=== PATIENT | female | born 1995 | race African-American/Black ===

== ENCOUNTER 2018-03-07 00:40 | Emergency (ER) | payer OTHER ==
[2018-03-07 00:51] VITALS: BP 132/66
--- NOTE | 2018-03-07 01:16 | ED Physician Documentation ---
History of Present Illness - Stated complaint Stated Complaint: TEST - Chief complaint Chief Complaint: General - History obtained from History obtained from: Patient - History of Present Illness Timing: Other (tonight) Pain level max: 0 Pain level now: 0 - Additonal information Additional information: had nexplanon (LUE) placed November 2017. she says she has taken several home tests since then, and tonight had (+) result for first time. She is asymptomatic, requests blood test for ; she is chiefly concerned that she is with nexplanon in place. Review of Systems GI: denies: Abdominal Pain, Nausea, Vomiting PD PAST MEDICAL HISTORY - Past Medical History Past Medical History: No - Past Surgical History Past Surgical History: No - Present Medications Home Medications: Ambulatory Orders Medication Instructions Recorded Confirmed No Known Home Medications [No 03/07/18 03/07/18 Known Home Medications] - Allergies Allergies/Adverse Reactions: Allergies Allergy/AdvReac Type Severity Reaction Status Date / Time No Known Drug Allergies Allergy Verified 03/07/18 00:50 - Social History Does the pt smoke?: No Smoking Status: Never smoker Does the pt drink ETOH?: No Does the pt have substance abuse?: No PD ED PE NORMAL - Vitals Vital signs reviewed: Yes - General General: Alert and oriented X 3, No acute distress, Well developed/nourished - Abdomen Abdomen: Soft, Non tender Results - Vitals Vitals: Vital Signs - 24 hr 03/07/18 00:49 Temperature 36.8 C Heart Rate 71 Respiratory 16 Rate Blood Pressure 132/66 H O2 Saturation 100 Oxygen O2 Source Room air - Labs Labs: Laboratory Tests 03/07/18 01:34 HCG, Quant < 0.60 PD MEDICAL DECISION MAKING - ED course Complexity details: reviewed results, re-evaluated patient, considered differential, d/w patient ED course: serum quantitative HCG is negative (<0.6). discharged after result reviewed Departure - Departure Disposition: 01 Home, Self Care Clinical Impression: Negative test Condition: Good Comments: Your serum (blood) test is negative tonight. This means your home test was incorrect ("false positive"), which is unusual but can occasionally happen. Discharge Date/Time: 03/07/18 02:29
== END 2018-03-07 02:29 | disposition home or self-care (01) ==
LOC: ED 00:40
DX: Z32.02 Encounter for pregnancy test, result negative (principal)
CPT/HCPCS: 36415; 84702; 99281; 99282

== ENCOUNTER 2018-04-07 18:03 | Emergency (ER) | payer OTHER ==
[2018-04-07 18:20] VITALS: BP 117/62
--- NOTE | 2018-04-07 20:16 | ED Physician Documentation ---
History of Present Illness - Stated complaint Stated Complaint: TAILBONE PX - Chief complaint Chief Complaint: Back Pain - History obtained from History obtained from: Patient - History of Present Illness Timing: Today - Additonal information Additional information: Patient is a 22 year old female with no significant past medical history who is presenting to the emergency department for tailbone pain. patient states that she was moving all day today by herself and now has low back pain. patient denies any trauma or rash. Review of Systems Ten Systems: 10 systems reviewed and negative PD PAST MEDICAL HISTORY - Past Medical History Past Medical History: No - Past Surgical History Past Surgical History: No - Present Medications Home Medications: Ambulatory Orders Medication Instructions Recorded Confirmed Lidocaine Patch 5% [Lidoderm Patch] 1 each TOP DAILY #14 patch 04/07/18 - Allergies Allergies/Adverse Reactions: Allergies Allergy/AdvReac Type Severity Reaction Status Date / Time No Known Drug Allergies Allergy Verified 04/07/18 18:20 - Social History Does the pt smoke?: No Smoking Status: Never smoker Does the pt drink ETOH?: No Does the pt have substance abuse?: No - POLST Patient has POLST: No PD ED PE NORMAL - Vitals Vital signs reviewed: Yes - General General: Alert and oriented X 3, No acute distress - HEENT HEENT: Atraumatic - Cardiac Cardiac: RRR - Respiratory Respiratory: No respiratory distress - Abdomen Abdomen: Non distended - Derm Derm: Normal color, No rash - Extremities Extremities: No deformity - Neuro Neuro: Alert and oriented X 3, No motor deficit PD ED PE EXPANDED - Back Back: Soft tissue tenderness (mild tendnerness to palpation over coccyx, no rash , no abscess, no gross deformity) Results - Vitals Vitals: Vital Signs - 24 hr 04/07/18 18:18 Temperature 36.9 C Heart Rate 69 Respiratory 16 Rate Blood Pressure 117/62 O2 Saturation 97 Oxygen O2 Source Room air PD MEDICAL DECISION MAKING - ED course Complexity details: reviewed old records, reviewed results, re-evaluated patient , considered differential, d/w patient ED course: Patient was seen and examined at bedside. patient was well appearing. there was no trauma and no gross deformity so no imaging was indicated. Patient is actively breast feeding and was treated with tylenol and lidoderm patch. patient required no further work up at this time and was stable for discharge with outpatient follow up. - Sepsis Event Vital Signs: Vital Signs - 24 hr 04/07/18 18:18 Temperature 36.9 C Heart Rate 69 Respiratory 16 Rate Blood Pressure 117/62 O2 Saturation 97 Oxygen O2 Source Room air Departure - Departure Disposition: 01 Home, Self Care Clinical Impression: Back pain Condition: Good Instructions: Low Back Pain Self Care Follow-Up: Marquis Ballesteros MD [Primary Care Provider] - Prescriptions: Lidocaine Patch 5% [Lidoderm Patch] 1 each TOP DAILY #14 patch Comments: You should alternate between ice and heat for your low back pain. You can also take tylenol 650mg or lidoderm topical patches. you can follow up with your doctor if symptoms persist. you can use the donut seat if necessary for pain. You can return to the emergency department at any time for new, worsening or uncontrollable symptoms. Discharge Date/Time: 04/07/18 20:23
[2018-04-07] MEDS: ACETAMINOPHEN 325 MG TABLET PO STA (20:23)
[2018-04-07] MEDS: LIDOCAINE PATCH 5% TOP STA (20:23)
== END 2018-04-07 20:23 | disposition home or self-care (01) ==
LOC: ED 18:03
DX: M54.5 Low back pain (principal)
CPT/HCPCS: 99283

== ENCOUNTER 2018-07-06 11:26 | Emergency (ER) | payer OTHER ==
[2018-07-06 11:44] VITALS: BP 104/63
--- NOTE | 2018-07-06 13:58 | ED Physician Documentation ---
PD HPI SKIN - Stated complaint Stated Complaint: BUMP UNDER ARM - Chief complaint Chief Complaint: Wound - History obtained from History obtained from: Patient - History of Present Illness Timing - onset: How many weeks ago (1) Timing - duration: Weeks (1) Timing - details: Gradual onset Pain level max: 4 Pain level now: 3 Location: Other (L axilla) Quality / character: Painful, Swelling Improved by: Other (nothing) Worsened by (comment): COMMENT (palpation) Associated symptoms: No: Fever, Myalgias Similar symptoms before: Diagnosis (abscess) Recently seen: Not recently seen Review of Systems Constitutional: denies: Fever, Chills Respiratory: denies: Cough GI: denies: Nausea, Vomiting, Diarrhea : denies: Now EGA Skin: denies: Rash Musculoskeletal: denies: Neck pain, Back pain Neurologic: denies: Headache PD PAST MEDICAL HISTORY - Past Medical History Past Medical History: No Cardiovascular: None Respiratory: None Neuro: None Endocrine/Autoimmune: None GI: None CERTIFIED REGISTERED DENTAL ASSISTANT: None : None HEENT: None Musculoskeletal: None Derm: None - Past Surgical History Past Surgical History: No - Present Medications Home Medications: Ambulatory Orders Medication Instructions Recorded Confirmed Ibuprofen [Motrin] 800 mg PO Q8H PRN #30 tablet 07/06/18 Sulfamethox/Trimeth 800/160 1 each PO BID #14 tablet 07/06/18 [Bactrim Ds 800/160] - Allergies Allergies/Adverse Reactions: Allergies Allergy/AdvReac Type Severity Reaction Status Date / Time No Known Drug Allergies Allergy Verified 07/06/18 11:44 - Social History Does the pt smoke?: No Smoking Status: Never smoker Does the pt drink ETOH?: No Does the pt have substance abuse?: No - Immunizations Immunizations are current?: Yes - POLST Patient has POLST: No PD ED PE NORMAL - Vitals Vital signs reviewed: Yes - General General: Alert and oriented X 3, No acute distress - Derm Derm: Warm and dry - Extremities Extremities: Other (L axilla - 1cm, indurated area with mild cellulitis. no fluctuance.) - Neuro Neuro: Alert and oriented X 3 - Psych Psych: Normal mood, Normal affect Results - Vitals Vitals: Vital Signs - 24 hr 07/06/18 11:42 Temperature 36.7 C Heart Rate 82 Respiratory 16 Rate Blood Pressure 104/63 O2 Saturation 96 Oxygen O2 Source Room air PD MEDICAL DECISION MAKING - ED course Complexity details: considered differential, d/w patient ED course: Patient is a 22-year-old female who presents to the emergency department with a early abscess to the left axilla. Ultrasound was applied and there is no drainable fluid at this time. There is no fluctuance on clinical exam. Will place on antibiotics and see how she progresses over the next few days. She is well-appearing, nontoxic. Afebrile. Denies any possibility of . She is not breast-feeding. Patient counseled regarding signs and symptoms for which I believe and urgent re-evaluation would be necessary. Patient with good understanding of and agreement to plan and is comfortable going home at this time This document was made in part using voice recognition software. While efforts are made to proofread this document, sound alike and grammatical errors may oc cur. - Sepsis Event Vital Signs: Vital Signs - 24 hr 07/06/18 11:42 Temperature 36.7 C Heart Rate 82 Respiratory 16 Rate Blood Pressure 104/63 O2 Saturation 96 Oxygen O2 Source Room air Departure - Departure Disposition: 01 Home, Self Care Clinical Impression: Abscess Condition: Good Instructions: ED Staph Infec Abx Tx Only Follow-Up: Marquis Ballesteros MD [Primary Care Provider] - Within 3 Days (for wound check) Prescriptions: Ibuprofen [Motrin] 800 mg PO Q8H PRN #30 tablet PRN Reason: PAIN &/OR FEVER Sulfamethox/Trimeth 800/160 [Bactrim Ds 800/160] 1 each PO BID #14 tablet Comments: Take all antibiotics until gone. Return if you worsen. There is a chance that this may worsen and need to be incised and drained at a later date. There is no drainable abscess today.
== END 2018-07-06 14:08 | disposition home or self-care (01) ==
LOC: ED 11:26
DX: L02.412 Cutaneous abscess of left axilla (principal)
CPT/HCPCS: 99283